=== PATIENT | male | born 1965 | race Caucasian/White ===

== ENCOUNTER → 2019-07-04 | Outpatient (CLI) | payer OTHER | END | disposition home or self-care (01) | LOC: RADMRIMAIN 19:26 | PROVIDERS: ATTEND Family Medicine | DX: Z53.9 Procedure and treatment not carried out, unspecified reason (principal) ==

== ENCOUNTER → 2020-02-27 | Outpatient (CLI) | payer OTHER ==
--- NOTE | 2020-02-28 07:27 | CT ---
EXAMINATION TYPE: CT chest wo con DATE OF EXAM: 02/27/2020 COMPARISON: NONE HISTORY: Pulmonary nodule found on other diagnostic testing. Pt not c/o any issues CT DLP: 541.20 mGycm. Automated Exposure Control for Dose Reduction was Utilized. TECHNIQUE: CT scan of the thorax is performed without IV contrast. FINDINGS: LUNGS: There is 4 x 2 mm subpleural nodule right upper lobe axial image 24. No concerning greater morris n 4 mm pulmonary nodules are identified bilaterally. There is no pleural effusion or pneumothorax se en bilaterally. The tracheobronchial tree is patent. MEDIASTINUM: Lack of IV contrast is noted to limit evaluation for mediastinal and especially hilar ad enopathy. There are no definitive greater than 1 cm hilar or mediastinal lymph nodes. Trace pericardi al effusion is seen. No cardiomegaly. Moderate coronary artery calcification the proximal LAD. OTHER: Bilateral gynecomastia. Liver diffusely low dense consistent with fatty infiltration. 2 CT den se pills in the stomach are noted. Slight scoliotic curvature with fairly moderate multilevel spurrin g. IMPRESSION: No concerning greater than 4 mm pulmonary nodules. No suspicious adenopathy.
== END | disposition home or self-care (01) ==
LOC: RADCTMAIN 18:42
PROVIDERS: ATTEND Family Medicine
DX: R91.1 Solitary pulmonary nodule (principal)
CPT/HCPCS: 71250

== ENCOUNTER 2021-05-20 17:47 | Emergency (ER) | payer OTHER ==
[2021-05-20 19:00] VITALS: TEMP 98.4
[2021-05-20] MEDS ORDERED: SODIUM CHLORIDE 0.9% 1,000 ML IV STA (19:24)
[2021-05-20] MEDS ORDERED: ACETAMINOPHEN TAB 500 MG TAB PO STA (19:25)
--- NOTE | 2021-05-20 19:28 | ED ---
General Adult HPI - General Chief complaint: Upper Respiratory Infection Stated complaint: COVID+ / wants antibodies Time Seen by Provider: 05/20/21 19:07 Source: patient, family, RN notes reviewed Mode of arrival: ambulatory Limitations: no limitations - History of Present Illness Initial comments: Patient is a pleasant 55-year-old male presenting to the emergency department with concerns for over 19 infection. Onset of symptoms was 1 week ago. Patient has had significant fatigue. Patient does have cough which has been nonproductive. Patient does have fevers and chills. Patient has myalgias. Patient has loss of taste and smell. Patient has had some vomiting and diarrhea. - Related Data Allergies Allergy/AdvReac Type Severity Reaction Status Date / Time No Known Allergies Allergy Verified 05/20/21 19:00 Review of Systems ROS Statement: Those systems with pertinent positive or pertinent negative responses have been documented in the HPI. ROS Other: All systems not noted in ROS Statement are negative. Constitutional: Reports: fever, chills Eyes: Denies: eye pain ENT: Denies: ear pain Respiratory: Reports: cough Cardiovascular: Denies: chest pain Endocrine: Reports: fatigue Gastrointestinal: Denies: abdominal pain Genitourinary: Denies: dysuria Musculoskeletal: Denies: back pain Skin: Denies: rash Neurological: Denies: weakness Past Medical History Past Medical History: Diabetes Mellitus, Hypertension History of Any Multi-Drug Resistant Organisms: None Reported Past Psychological History: No Psychological Hx Reported Smoking Status: Never smoker Past Alcohol Use History: Rare Past Drug Use History: None Reported General Exam Limitations: no limitations General appearance: alert, in no apparent distress Head exam: Present: normocephalic Eye exam: Present: normal appearance Neck exam: Present: normal inspection Respiratory exam: Present: normal lung sounds bilaterally Cardiovascular Exam: Present: tachycardia GI/Abdominal exam: Present: soft. Absent: tenderness Extremities exam: Present: normal inspection. Absent: pedal edema, calf tenderness Neurological exam: Present: alert Psychiatric exam: Present: normal affect, normal mood Skin exam: Present: normal color Course Vital Signs 05/20/21 18:56 Temperature 98.4 F Pulse Rate 114 H Respiratory 22 Rate Blood Pressure 118/80 O2 Sat by Pulse 95 Oximetry Medical Decision Making - Medical Decision Making Patient has been given monoclonal antibodies and will be discharged following this. Disposition Clinical Impression: COVID-19 Disposition: HOME SELF-CARE Condition: Stable Instructions (If sedation given, give patient instructions): Upper Respiratory Infection (ED), Coronavirus Disease 2019 (COVID-19) Additional Instructions: [id number] vitamin C, vitamin D, and zinc. [id number]-[id number] melatonin may help as well. Please do follow-up with your primary care physician in the next day or 2 for recheck. Return for difficulty in breathing, not tolerating fluids, worsening symptoms or other concerns. Jjli-idd-jjuvces Tylenol as needed. Continue to quarantine as CDC recommendations Is patient prescribed a controlled substance at d/c from ED?: No Referrals: Donna Trevino MD [Primary Care Provider] - 1-2 days Time of Disposition: 19:28
[2021-05-20] MEDS ORDERED: BAMLANIVIMAB (EUA) 700 MG, ETESEVIMAB (EUA) 1,400 MG in SODIUM CHLORIDE 0.9% 50 ML IVPB ONE (20:00)
[2021-05-20] MEDS ORDERED: SODIUM CHLORIDE 0.9% 50 ML IVPB ONE (20:30)
[2021-05-20 23:52] VITALS: BP 121/67; PULSE 98; RESP 16
== END 2021-05-20 23:52 | disposition home or self-care (01) ==
LOC: EC 17:47
DX: U07.1 COVID-19 (principal); I10 Essential (primary) hypertension; E11.9 Type 2 diabetes mellitus without complications
CPT/HCPCS: 99283; 96365; J3490

== ENCOUNTER → 2023-07-04 | Outpatient (CLI) | payer OTHER ==
[2023-07-04 23:11] LABS: Basophils # (A) 0.08 X 10*3/uL (0.00-0.10); Basophils % (A) 1.3 %; Eosinophils # (A) 0.19 X 10*3/uL (0.04-0.35); HCT 50.5 % (39.6-50.0); HGB 16.5 g/dL (13.0-17.0); Lymphocytes # (A) 2.13 X 10*3/uL (0.90-5.00); MCH 29.5 pg (27.0-32.0); MCHC 32.7 g/dL (32.0-37.0); MCV 90.2 FL (80.0-97.0); Mean Platelet Volume 10.1 FL (9.5-12.2); Monocytes % (A) 11.2 %; NRBC Per 100 WBC 0 X 10*3/uL (0.00-0.01); Neutrophils # (A) 3.15 X 10*3/uL (1.80-7.70); Neutrophils % (A) 50.2 %; Platelet Count 359 X 10*3/uL (140-440); RDW 12.9 % (11.5-14.5); WBC 6.27 X 10*3/uL (4.50-10.00)
[2023-07-05 00:08] LABS: ALT 25 U/L (10-49); AST 20 U/L (14-35); Albumin 4.5 g/dL (3.8-4.9); Albumin/Globulin Ratio 1.88 Ratio (1.60-3.17); Alkaline Phosphatase 46 U/L (41-126); BUN/Creat Ratio 23.88 Ratio (12.00-20.00); Blood Urea Nitrogen 19.1 mg/dL (9.0-27.0); Calcium 9.6 mg/dL (8.7-10.3); Carbon Dioxide 24.4 mmol/L (21.6-31.8); Chloride 106 mmol/L (96-109); Chol/HDL Ratio 3.59 Ratio; Globulin 2.4 g/dL (1.6-3.3); Glucose 116 mg/dL (70-110); LDL Cholesterol,Calculated 102.2 mg/dL (0.0-131.0); Potassium 4.2 mmol/L (3.5-5.5); Prostate Specific Antigen 0.34 ng/mL (0.000-3.500); Sodium 142 mmol/L (135-145); Total Bilirubin 0.4 mg/dL (0.3-1.2); Total Protein 6.9 g/dL (6.2-8.2)
== END | disposition home or self-care (01) ==
LOC: LABWHC1 10:47
PROVIDERS: ATTEND Family Medicine
DX: Z00.00 Encounter for general adult medical examination without abnormal findings (principal); Z12.5 Encounter for screening for malignant neoplasm of prostate; E11.65 Type 2 diabetes mellitus with hyperglycemia; E78.5 Hyperlipidemia, unspecified; K76.0 Fatty (change of) liver, not elsewhere classified; R53.83 Other fatigue
CPT/HCPCS: 36415; 80053; 80061; 83036; 84153; 84443; 85025